=== PATIENT | male | born 1950 | race Caucasian/White ===

== ENCOUNTER → 2017-02-22 | Outpatient (CLI) | payer MEDICARE | END | disposition home or self-care (01) | LOC: PCVCCLINIC 12:48 | PROVIDERS: ATTEND Internal Medicine Cardiovascular Disease | DX: I25.10 Atherosclerotic heart disease of native coronary artery without angina pectoris (principal); I10 Essential (primary) hypertension; I25.5 Ischemic cardiomyopathy; I77.9 Disorder of arteries and arterioles, unspecified; R00.1 Bradycardia, unspecified; E78.00 Pure hypercholesterolemia, unspecified; F17.200 Nicotine dependence, unspecified, uncomplicated; Z79.899 Other long term (current) drug therapy; Z79.82 Long term (current) use of aspirin | CPT/HCPCS: 80061; 93005; G0463 ==

== ENCOUNTER → 2017-09-07 | Outpatient (CLI) | payer MEDICARE ==
[~2017-09-07] MED LIST: REGADENOSON 0.4 MG/5 ML DISP.SYRIN. IV ONE
--- NOTE | 2017-09-07 19:21 | PCVCIMAG ---
APPROVED REPORT Exam: Nuclear Stress Test Indication: CAD Patient Location: Out-Patient Stress Nurse: Devora Forrester RN, Chely Gutierrez RN NE Tech:Maria Eugenia FranklinhbunJOHN Ht: 5 ft 11 in Wt: 233 lbs BSA: 2.25 m2 HR: 66 bpm BP: 142/77 mmHg BMI: 32.4 Rhythm: SR W/ ST ABN Medical History Medical History: Hyperlipidemia, HTN, CAD, PVD, CVD, Age Medications: ASA, Atorvastatin, Lisinopril, Nitro, Fish Oil Allergies: Morphine Previous Cardiac Procedures: PCI Pretest Chest Pain Characteristics: No chest pain Exercise History: Physically active Physical Disabilities: physical limitations NM EXAM: Myocardial Perfusion REST/STRESS Imaging Protocol: Rest Tc-99m/Stress Tc-99m 1 day Resting Data Rest SPECT myocardial perfusion imaging was performed in supine position 45 minutes following the intravenous injection of 11 mCi of Tc-99m Sestamibi. Time of rest injection: 0915 Date: 09/07/2017 Administration Route: IV Administration Site: Right Arm Pharmacologic Stress Pharmacologic stress test was performed by injecting Regadenoson 0.4 mg IV push followed by the intravenous injection of 34.2 mCi of Tc-99m Sestamibi. Time of stress injection: 1030 Date: 09/07/2017 Administration Route: IV Administration Site: Right Arm Gated Stress SPECT was performed 45 minutes after stress injection. The images were gated to evaluate regional wall motion and calculate left ventricular ejection fraction. Study Quality Study: Good Study Data Post stress, the left ventricular ejection was 52%.. SSS: 28 SRS: 24 SDS: 4 TID = 1.05. Perfusion No evidence of stress induced ischemia. 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 Wall Motion There is a large area of akinesis in the entire segment of the inferolateral wall which is seen on the stress images as well as the resting images. Nuclear Conclusion No evidence of stress induced ischemia. 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 Post stress, the left ventricular ejection was 52%.. No change since prior study dated August 2015. Interpreted by: Malcolm Sebastian MD Electronically Approved: 09/07/2017 14:53:43 Stress Test Details Stress Test: Pharmacologic stress was paired with low level exercise. Reason for pharmacologic stress test: physical limitation. HR Resting HR: 66 bpmMax Heart Rate (APMHR): 152 bpm Max HR Achieved: 88 bpmTarget HR (85% APMHR): 129 bpm % of APMHR: 57 Recovery HR: 70 bpm BP Resting BP: 142/77 mmHg Max BP: 136/78 mmHg ECG Resting ECG: Sinus Rhythm, nonspecific ST-T abnormalities Stress ECG: Sinus Rhythm, nonspecific ST-T abnormalities Recovery ECG: Sinus Rhythm, nonspecific ST-T abnormalities Clinical Reason for Termination: Completed protocol Stress Symptoms: Dyspnea Exercise duration: 4 min 00 sec Exercise capacity: 1.6 METs Symptoms resolved during recovery. Stress ECG Conclusion ECG: Non-ischemic <Conclusion> ECG: Non-ischemic
== END | disposition home or self-care (01) ==
LOC: PCVCIMAG 08-22 11:10
PROVIDERS: ATTEND Internal Medicine Cardiovascular Disease
DX: I25.10 Atherosclerotic heart disease of native coronary artery without angina pectoris (principal); I73.9 Peripheral vascular disease, unspecified; E78.5 Hyperlipidemia, unspecified; I10 Essential (primary) hypertension; Z95.5 Presence of coronary angioplasty implant and graft
CPT/HCPCS: 78452; 93017; A9500; J2785; 93325; 93351

== ENCOUNTER → 2018-04-13 | Outpatient (CLI) | payer MEDICARE | END | disposition home or self-care (01) | LOC: PCVCCLINIC 13:20 | DX: I25.10 Atherosclerotic heart disease of native coronary artery without angina pectoris (principal); E78.00 Pure hypercholesterolemia, unspecified; I10 Essential (primary) hypertension; I77.9 Disorder of arteries and arterioles, unspecified; M79.604 Pain in right leg; M79.605 Pain in left leg; R60.9 Edema, unspecified; R94.31 Abnormal electrocardiogram [ECG] [EKG]; F17.210 Nicotine dependence, cigarettes, uncomplicated; Z88.8 Allergy status to other drugs, medicaments and biological substances; Z79.82 Long term (current) use of aspirin; Z79.899 Other long term (current) drug therapy | CPT/HCPCS: 80061; 93005; G0463 ==

== ENCOUNTER → 2018-04-27 | Outpatient (CLI) | payer MEDICARE | END | disposition home or self-care (01) | LOC: PCVCIMAG 10:36 | DX: I25.10 Atherosclerotic heart disease of native coronary artery without angina pectoris (principal); I10 Essential (primary) hypertension; I65.23 Occlusion and stenosis of bilateral carotid arteries; F17.200 Nicotine dependence, unspecified, uncomplicated | CPT/HCPCS: 93880; 93925; 93970 ==

== ENCOUNTER → 2018-12-14 | Outpatient (CLI) | payer MEDICARE | END | disposition home or self-care (01) | LOC: PCVCCLINIC 10:27 | PROVIDERS: ATTEND Internal Medicine Cardiovascular Disease | DX: I25.10 Atherosclerotic heart disease of native coronary artery without angina pectoris (principal); I25.5 Ischemic cardiomyopathy; I10 Essential (primary) hypertension; E78.00 Pure hypercholesterolemia, unspecified; I65.23 Occlusion and stenosis of bilateral carotid arteries; F17.210 Nicotine dependence, cigarettes, uncomplicated; Z79.82 Long term (current) use of aspirin | CPT/HCPCS: 36415; 80061; 93005; G0463 ==

== ENCOUNTER → 2019-03-21 | Outpatient (CLI) | payer MEDICARE ==
--- NOTE | 2019-03-21 09:10 | PCVCIMAG ---
APPROVED REPORT Patient Location: Out-Patient Indications Stenosis Doppler Spectral Velocity Analysis PSV / EDVPSV / EDV ECA (R) 81 / 13 cm/sECA (L) 97 / 13 cm/s dICA (R) 81 / 32 cm/sdICA (L) 55 / 18 cm/s Sarah (R) 68 / 24 cm/smICA (L) 82 / 29 cm/s pICA (R) 67 / 24 cm/spICA (L) 57 / 15 cm/s Bulb (R) 69 / 17 cm/sBulb (L) 63 / 15 cm/s dCCA (R) 68 / 17 cm/sdCCA (L) 79 / 22 cm/s mCCA (R) 92 / 22 cm/smCCA (L) 91 / 25 cm/s Vert (R) 41 / 11 cm/sVert (L) 29 / 5 cm/s ICA/CCA 1.19ICA/CCA 1.04 Findings The right carotid bulb has no significant plaque. The right proximal internal carotid artery shows no significant stenosis. The right common carotid artery shows no significant stenosis. The right external carotid artery shows no significant stenosis. The left carotid bulb has minimal plaque. The left proximal internal carotid artery shows no significant stenosis. The left common carotid artery shows no significant stenosis. The left external carotid artery shows no significant stenosis. Conclusion 1. No significant stenosis involving either carotid artery. 2. Antegrade vertebral flow.
--- NOTE | 2019-03-21 16:36 | PCVCIMAG ---
APPROVED REPORT Imaging Protocol: Rest Tc-99m/Stress Tc-99m 1 day Study performed: 03/21/2019 09:20:58 Indication: CAD, I-Cardiomyopathy Patient Location: Out-Patient Stress Nurse: Devora Forrester RN, Chely Gutierrez RN NE Tech:Maria Eugenia Jayy [facility] Ht: 5 ft 11 in Wt: 234 lbs BSA: 2.25 m2 HR: 54 bpm BP: 166/96 mmHg BMI: 32.6 Rhythm: Sinus Bradycardia, 1st degree AV block Medical History Medical History: Hyperlipidemia, HTN, CVD, CVD, Current Smoker Medications: ASA, Atenolol, Atorvastatin, Aricept, Lexapro, Neurontin, Lisinopril Allergies: Morphine Cardiac Risk Factors: Age Previous Cardiac Procedures: 2011 Stent to Circ Pretest Chest Pain Characteristics: No chest pain Physical Disabilities: Hips Meds Held (24 hrs): Atenolol Resting Data Rest SPECT myocardial perfusion imaging was performed in supine position 45 minutes following the intravenous injection of 10.5 mCi of Tc-99m Sestamibi. Time of rest injection: 0850 Date: 03/21/2019 Administration Route: IV Administration Site: Right AC Pharmacologic Stress Pharmacologic stress test was performed by injecting Regadenoson 0.4 mg IV push over 10-15 seconds immediately followed by the intravenous injection of 33.7 mCi of Tc-99m Sestamibi. Time of stress injection: 1020 Date: 03/21/2019 Administration Route: IV Administration Site: Right AC Gated Stress SPECT was performed 45 minutes after stress injection. The images were gated to evaluate regional wall motion and calculate left ventricular ejection fraction. Stress Test Details Stress Test: Pharmacologic stress testing performed using 0.4 mg of regadenoson per 5 mL given IV over 10 seconds. Reason for pharmacologic stress test: Hip pain. HRMax Heart Rate (APMHR): 150 bpm Resting HR: 54 bpmTarget HR (85% APMHR): 127 bpm Max HR Achieved: 80 bpm % of APMHR: 53 Recovery HR: 72 bpm BP Resting BP: 166/96 mmHg Max BP: 122/64 mmHg Recovery BP: 137/72 mmHg ECG Resting ECG: Sinus Bradycardia, 1st degree AV block Stress ECG: Sinus Rhythm Arrhythmia: None Recovery ECG: Sinus Rhythm Clinical Reason for Termination: Completed protocol Stress Symptoms: Abdominal discomfort Symptoms resolved with caffeine. Stress ECG Conclusion ECG: Non-ischemic Study Quality Study: Good Study Data Post stress, the left ventricular ejection was 44%.. SSS: 22 SRS: 21 SDS: 2 TID = 0.96. Perfusion No evidence of stress induced ischemia. 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 Wall Motion Mildly decreased left ventricular systolic function. Nuclear Conclusion No evidence of stress induced ischemia. 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 No change since prior study dated August 2015. Interpreted by: Malcolm Sebastian MD Electronically Approved: 03/21/2019 14:27:56 <Conclusion> ECG: Non-ischemic
== END | disposition home or self-care (01) ==
LOC: PCVCIMAG 08:12
PROVIDERS: ATTEND Internal Medicine Cardiovascular Disease
DX: I25.10 Atherosclerotic heart disease of native coronary artery without angina pectoris (principal); I25.5 Ischemic cardiomyopathy; I65.23 Occlusion and stenosis of bilateral carotid arteries; I10 Essential (primary) hypertension; F17.200 Nicotine dependence, unspecified, uncomplicated; E78.5 Hyperlipidemia, unspecified; Z88.5 Allergy status to narcotic agent
CPT/HCPCS: 78452; 93017; 93880; A9500; J2785